=== PATIENT | female | born 1945 | race Caucasian/White ===

== ENCOUNTER 2025-07-28 14:20 | Emergency (ER) | payer MEDICARE, SELFPAY ==
--- OUTSIDE RECORDS SUMMARY | 2024-02-20 08:20 | XMS_ITS ---
Author Organization [facility] Address [address] [place] [address] Care Team Providers Care Senior Process Engineer Name Role Phone Tesfaye Chapman Unavailable [phone] Robert Buckley DPM Unavailable Unavailable REASON FOR VISIT SP LEFT FOOT HWR DOS 09/15 Encounters Encounter Location Date Provider Diagnosis [facility] [address] [place] [address] 02/20/2024 Tesfaye Chapman Plan Of Treatment No Information Progress Notes * LITZY SOMERS RDOB: (79 yo F)Acc No.[id number]:02/20/2024 Progress Notes Patient: Hernandez LITZY CATES :?Tesfaye Chapman DPMDOB:1945???Age:78 Y ???Sex:FemaleDate:02/20/2024hone:[phone]:[address] [place], [place] [phone] Subjective: * Chief Complaints: * 1 . SP LEFT FOOT HWR DOS 09/15. * Medical History: Objective: * Vitals: Assessment: Plan: * Treatment: Forms: * Images: * Electronic signature of Tesfaye Chapman DPM on 07/28/2025 at 01:33 PM ESTSign off status: Pending * Provider: Omero Chapman DPM Date: 0 02/20/2024 Generated for Printing/Faxing/eTransmitting on:?07/28/2025 01:33 PM EST
--- OUTSIDE RECORDS SUMMARY | 2025-07-28 09:01 | XMS_ITS | Continuity of Care Document ---
Author Organization [facility] Address [address] [place] [address] Phone Care Team Providers Care Registered Veterinary Technician Name Role Phone Veronica Sanchez APRN Attending Provider [phone] Brian Cyr DO Primary Care Provider Care Teams Patient Care Team Team Status: Active Member Role/Relationship Status Dates Brian Cyr DO Primary Care Provider Active Patient Care Team Team Status: Inactive Member Role/Relationship Status Dates Veronica Sanchez APRN Attending Provider Active S tart: July 28, 2025 End: July 28harLauri Diaz Care ProviderActiveStart: July 28, 2025 End: July 28, 2025 Chief Complaint and Reason for Visit Chief Complaint Admit Date Right index finger July 28, 2025 1:32pm Allergies, Adverse Reactions, Alerts Allergen Type Severity Reaction Last Updated Verified Status No Known Allergies Allergy Unknown July 28, 2025 1:48pmYesActive Social History Smoking Status Status Start Date End Date Date of Observa tion Smokes tobacco daily (finding) July 28, 2025 1:50pm Observation Status Observation Response Date of Response Legal Sex Female (finding) Sex Assigned At [facility] 1945 Medications Medication Status Dose Units Route Directions Qty Days Refills S tart Date Stop Date End Date Reason(s) Instructions Adherence Tramadol 50 mg tablet Active 50 MG PO Twice sita y July 28, 2025 12:00amComplies with drug therapyCiprofloxacin-Dexamethasone 0.3-0.1 % drops,suspensionActiveDROPSOTICNov2024 12:00amComplies with drug therapy Vital Signs Vital Reading Result Reference Range Collection Date/Time Body Temperature 97.1 [degF] 97.6-99.0 July 282024 1:47pm Heart Rate 77 /min 60-100 July 28, 2025 1:47pm Respiratory rate 18 /min 12-24 July 282024 1:47pm Oxygen saturation by Pulse oximetry 98 % 95-100 July 28, 2025 1:47pm Advance Directives Advance Directive Response Recorded Date/ Time Advance Directives No July 1:30pm Insurance Providers Guarantor Lizeth Pelayo r Address [address] [place] [address] 2 [address] [facility] [address]Iffisih Info.Home Phone: Coverage Status Update:2025 Payer Group Member ID Coverage Type Subscriber Relationship to Subscriber Effective Date Expiration Date Medicare [id number] Garcia Id: [id number] [address] [place] [phone] Home Phone: [facility] [id number] Garcia Id: [id number] [address] [place] [address] [place] [address] Home Phone: [facility] [address] [place] [address] Work Phone: [phone] R Bollenbacher Id: [id number] [address] [place] [phone] Home Phone: Sel Encounters Encounter Location(s) Arrival/Admit Date Discharge/Departure Date Discharge/Departure Disposition Provider(s) Departed Physician/ Provider Office Visit -[facility] July 28, 2025 1:32pm July 28, 2025 2:00pm Discharged to home care or self care (routine discharge) Mary Lou Sanders APRN
[2025-07-28 14:27] VITALS: BP 170/92; PULSE 81; TEMP 37.2; O2SAT 98; BMI 24.5
--- NOTE | 2025-07-28 14:42 | XR_ITS ---
The [address] [address] Patient Name: LITZY SOMERS MRN: [id number] date: 1945 Sex: F Assigned Patient Location: ER Current Patient Location: ER Accession/Order Number: [id number] Exam Date: 07/28/2025 15:20 Report Date: 07/28/2025 15:44 At the request of: CHECO REID MD Procedure: XR hand RT min 3V RIGHT HAND - 4 views REASON FOR EXAM: Index finger swelling. Dog bite yesterday. COMPARISON: None FINDINGS: Diffuse soft tissue swelling is seen involving the second digit. No radiopaque foreign body or soft tissue gas. No acute bony process is seen. 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 XR/XR hand RT min 3V IMPRESSION: DIFFUSE SOFT TISSUE SWELLING INVOLVING THE SECOND DIGIT WITHOUT ACUTE BONY PROCESS. Impression dictated by: Colin Campos Jr., D.O. 07/28/2025 3:44 PM Dictation [facility] Electronically authenticated by: [id number] Y Date: 07/28/2025 15:44
[2025-07-28] MEDS: DIPHTH,PERTUSS(ACELL),TET VAC 0.5 ML SYRINGE IM (15:26)
--- NOTE | 2025-07-28 15:51 | ED.ANIMALBI1 ---
HPI - Animal Bite General Chief Complaint: Animal Bite Stated Complaint: DOG BITE Time Seen by Provider: 07/28/25 14:34 Source: patient Mode of arrival: walk-in Limitations: no limitations History of Present Illness HPI narrative: Patient is 79 years old female presented to the ER with a right index finger bite by a dog that she adopted yesterday, the patient denies any other complaint last tetanus was more than 5 years ago She denies any fever chills Related Data Home Medications ?Medication ?Instructions ?Recorded ?Confirmed tramadol 50 mg tablet mg 07/28/25 Previous Rx's ?Medication ?Instructions ?Recorded amoxicillin 875 mg-potassium 1 tab PO Q12H #20 tabs 07/28/25 clavulanate 125 mg tablet ibuprofen 600 mg tablet 600 mg PO TID PRN pain #10 tabs 07/28/25 Allergies Allergy/AdvReac Type Severity Reaction Status Date / Time No Known Drug Allergies Allergy Verified 07/28/25 14:32 Review of Systems ROS Status of ROS 10 or more systems reviewed and unremarkable except as noted in history and below Exam Narrative Exam Narrative: Nurses notes and vital signs reviewed and patient is not hypoxic. Hand: Patient has erythema of the index finger on the right side at the distal phalanx the patient have a 2 puncture wound 1 in the anterior aspect and the other in the posterior Both of them are healing there is no signs of infection there is only inflammation extending to the whole index finger and there is mild redness in the dorsum of the right hand as well extending just above the second metacarpal. There is a good radial pulse and capillary fill General: Well-appearing and in no apparent distress. Skin: Warm, dry, no pallor noted. No rash. Head: Normocephalic, atraumatic. Neck: Supple, non-tender. Eye: Pupils are equal, round and EOMI. No scleral icterus. Ears, Nose, Mouth, and Throat: TM are clear, no nasal mucosal hypertrophy. Oral mucosa is moist, no posterior oropharynx erythema, uvula is mid-line Cardiovascular: Regular Rate and Rhythm without murmur, gallop or rub. Respiratory: No accessory muscle use or respiratory distress. GI: Abdomen is soft, non-distended. Normal bowel sounds. No masses appreciated. No tenderness to palpation. No rebound, guarding, or rigidity noted. Neurological: A&O x4. No cranial nerve dysfunction observed. No truncal ataxia. Moves all extremities. Sensation intact. Psychiatric: Cooperative and interactive. Normal mood and affect. Constitutional Vital Signs, click to edit/add: Last Vital Signs Temp 98.9 F 07/28/25 14:27 Pulse 81 07/28/25 14:27 Resp 16 07/28/25 14:27 BP 170/92 H 07/28/25 14:27 Pulse Ox 98 07/28/25 14:27 O2 Del Method Room Air 07/28/25 14:27 Course Vital Signs Vital signs: Vital Signs Temperature 98.9 F 07/28/25 14:27 Pulse Rate 81 07/28/25 14:27 Respiratory Rate 16 07/28/25 14:27 Blood Pressure 170/92 H 07/28/25 14:27 Pulse Oximetry 98 07/28/25 14:27 Oxygen Delivery Method Room Air 07/28/25 14:27 Temperature 98.9 F 07/28/25 14:27 Pulse Rate 81 07/28/25 14:27 Respiratory Rate 16 07/28/25 14:27 Blood Pressure 170/92 H 07/28/25 14:27 Pulse Oximetry 98 07/28/25 14:27 Oxygen Delivery Method Room Air 07/28/25 14:27 MDM - Animal Bite MDM Narrative Medical decision making narrative: dog bite happened yesterday and she was provided a tetanus booster The right index finger showed no acute pathology except for the edema Right now the patient was started on p.o. antibiotic Augmentin to cover the prophylaxis but the patient was instructed that she does have some erythema there that could be inflammatory there is no concern right now for infection but with the fact that it is in the hand she need to make sure that the redness will not extend beyond the line that was marked The patient will have to make sure that within 48 hours the line will proceed and is not going to cross the line of marking In case any fever or any other new symptoms the patient to come back to the ER as well Explained to the patient that this is inflammation in the finger and specially with the small side of the finger we need to make sure that monitoring is close for any signs of infection The patient to follow-up with the primary care within 2 to 3 days and to come back to the ER in case of any worsening of the current symptoms or any new symptoms or concerns Discharge Plan Discharge Chief Complaint: Animal Bite Clinical Impression: Dog bite Patient Disposition: Home, Self-Care Time of Disposition Decision: 15:59 Condition: Good Prescriptions / Home Meds: New amoxicillin-pot clavulanate 875-125 mg tablet 1 tab PO Q12H Qty: 20 0RF ibuprofen 600 mg tablet 600 mg PO TID PRN (Reason: pain) Qty: 10 0RF No Action tramadol 50 mg tablet Print Language: Lithuanian Instructions: Animal Bite (ED) Additional Instructions: Come back to the ER incase you have any redness extending beyond the giselle Also come back to the ER in case of no improvement in the next 48 hours Referrals: [facility] [Primary Care Provider, Family Practice] - 1 week Discharge Date/Time: 07/28/25 16:07
[2025-07-28] MEDS: AMOXICILLIN/POT CLAV 875-125 MG TABLET 1 TAB PO (15:54)
--- OUTSIDE RECORDS SUMMARY | 2025-07-28 15:59 | XMS_ITS | Patient Health Record ---
Author Organization [facility] Address [address] [place] [address] Care Team Providers Care Bone Crusher Name Role Phone Tesfaye Chapman Unavailable [phone] Robert Buckley DPM Unavailable Unavailable Allergies No Known Allergies Reason For Referral No Information Medications Medication SIG (Take, Route, Frequency, Duration) Notes Start Date End Date Status traMADol ActiveCALCIUM + VIT DORALCALCIUM + VIT DActiveOne Tab Daily multiple vitamins QVXBISH-QNVKAM-SOSBGJkizhdWnzhqh 50 mg1 po bid prn ETEHKSZOEW30/29/2014ctive Social History Tobacco Use: Social History Observation Description Date Details (start date - stop date) Current Smoker NA - NA Smoking History Question Answer Notes Smoking Status Current Smoker Problems Problem Type SNOMED Code ICD Code Onset Dates Problem Status W/U Status Risk Notes Problem Internal prosthetic device causing pain (629096497) Painful orthopaedic hardware (T84.84XA) ActiveconfirmedProblemPathological fracture of left foot (disorder) (35481863843521814)Pathological fracture, left foot, initial encounter for fracture (M84.475A)ActiveconfirmedProblemPathological fracture, left foot, subsequent encounter for fracture with routine healing (M84.475D)Activeconfirmed ProblemAcquired hallux malleus of left great toe (disorder) (5285877274585228) Hallux limitus of left foot (M20.5X2)ActiveconfirmedProblemSwelling of first metatarsophalangeal joint of hallux (944575974)Bunion, left (M21.612)Active confirmedProblemAcquired hallux valgus (53256528)Acquired hallux interphalangeus of left foot (M20.12)ActiveconfirmedProblemEncounter for other orthopedic aftercare (Z47.89)Activeconfirmed Plan Of Treatment Pending Test Test Name Order Date NTH - Walking Boot OTS 10/06/2023 Insurance Providers Payer Name Payer Address Payer Phone Subscriber Number Group Number Insured Name Patient Relationship to Insured Coverage Start Date Coverage End [place] [address] [place] [address] [id number] Albert SOMERS - patient is the insured[address] [place], [place] [id number], JUDITHSelf - patient is the insuredN[facility] [address] [address] [place] [id number], JUDITHSelf - patient is the insured Medical (General) History Medical History History ICD Code Have you been in close conta ct with someone who has had MRSA within the last year? No Have you ever had or presently have MRSA? NoAre you a healthcare worker? No Surgical History Surgery Date(Month/Year) Left foot great toe IP jnt fusion, 1st M T ORIF 09/15/2023 [facility]
--- OUTSIDE RECORDS SUMMARY | 2025-07-28 15:59 | XMS_ITS | Clinical Summary ---
Author Organization [facility] Address [address] [place] [address] Care Team Providers Care Income Tax Consultant Name Role Phone Unavailable Primary Care Provider Unavailabl e Social History Tobacco UseTypesPacks/DayYears UsedDateSmoking Tobacco: Never Assessed CommentsUnknownSex and Gender InformationValueDate RecordedSex Assigned at Not on fileLegal ZziJakixq60/15/2023 7:32 PM EDTGender IdentityNot on fileSexual OrientationNot on file Last Filed Vital Signs Vital SignReadingTime TakenCommentsBlood Bbprccsx931/8608 12:00 PM EDT Pulse--Temperature--Respiratory Rate--Oxygen Saturation--Inhaled Oxygen Concentration--Ksdudo19.2 kg (157 lb)08/27/2021 12:00 PM PMVWeaoeo016.5 cm (5' 2 )08/27/2021 12:00 PM ESTBody Mass Index28.7208/27/2021 12:00 PM EST Plan of Treatment Not on file Insurance [address] [place] [address]
--- OUTSIDE RECORDS SUMMARY | 2025-07-28 15:59 | XMS_ITS | Clinical Summary ---
Author Organization [facility] Address [id number] [place] [address] Care Team Providers Care Art History Professor Name Role Phone HouseBrian DO Primary Care Provider [phone] Allergies No known active allergies Medications MedicationSigDispense QuantityRefillsLast FilledStart DateEnd DateStatus traMADol (ULTRAM) 50 mg tablet Take 50 mg by mouth.Active VIT C/VIT E/LUTEIN/MIN/OMEGA-3 (OCUVITE ORAL) Take 1 tablet by mouth.Active multivitamin capsule Take 1 capsule by mouth.Active LACTOBACILLUS COMBINATION NO.8 (ADULT PROBIOTIC ORAL) Take 1 tablet by mouth.Active calcium carbonate-vitamin D3 600 mg(1,500mg) -200 units per tablet Take 1 tablet by mouth.Active docusate sodium (COLACE) 100 mg capsule Take 100 mg by mouth.06/04/2016Active cyclobenzaprine (FLEXERIL) 10 mg tablet Take 1 tablet (10 mg total) by mouth 3 (three) times a day as needed for muscle spasms. 30 tablet 1Active Active Problems ProblemNoted DateDiagnosed DateDiverticular disease of large mjrgkumbi17/17/2017 Immunizations No known immunizations Family History Medical HistoryRelationNameCommentsNo Known ProblemsFatherRelationNameStatus CommentsFather Social History Tobacco UseTypesPacks/DayYears UsedDateSmoking Tobacco: Every DayCigarettes Smokeless Tobacco: NeverAlcohol UseStandard Drinks/WeekCommentsNo0 (1 standard drink = 0.6 oz pure alcohol)ChildcareAnswerDate RecordedChildcareUnknown 02/14/2019EmploymentAnswerDate PubwlhbfBawbffuwvkDipkgsa04/12/2019Purpose - Life AnswerDate RecordedPurpose and direction in cgrxGlxqjsv58/11/2021 CommentsNoSex and Gender InformationValueDate RecordedSex Assigned at BirthNot on fileLegal IynMxxesi04/06/2015 11:49 AM EDTGender IdentityNot on fileSexual OrientationNot on file Last Filed Vital Signs Vital SignReadingTime TakenCommentsBlood Lsorlmjt518/6910/ 9:25 AM EDT Qkxww1595 9:25 AM FIFTxhiozmctxo84.1 ??C (97 ??F)06/26/2021 8:26 AM EDT Respiratory Syjx7632 9:25 AM EDTOxygen Ituvswhsqs44%06/26/2021 9:25 AM EDTInhaled Oxygen Concentration--Dklpyz54.6 kg (160 lb)06/26/2021 6:36 AM EDT Qscsug746.5 cm (5' 2 )06/26/2021 6:36 AM EDTBody Mass Index29.261 6:36 AM EDT Plan of Treatment Health MaintenanceDue DateLast DoneCommentsDepression Bqnmdgwsz64/01/1957Tobacco Kcfizbghn66/01/1957DTaP,Tdap and Td Vaccines (1 - Tdap)1963Zoster (Shingles) Vaccine (1 of 2)1994Fall Risk Rsvtatwfo44/01/2010RSV ( or age 60+ yrs) (1 - 1-dose 75+ series)2019COVID-19 Vaccine (3 - 2024- season)/, 04/01/2021Influenza Uvhspbp7205/06/2025 Medical Devices Not on file Insurance * Guarantor: Lizeth Garcia TypeRelation to PatientDate of PhoneBilling AddressPersonal/UjpsvqUduf84/[birth year][address] [address] Advance Directives * Full Code (Latest Code Status on File) Date ActivatedDate LjepyyahmxuAwokusts02/17/2017 1:33 06/24/2017 4:30 PM Care Teams Team MemberRelationshipSpecialtyStart DateEnd Date Brian Cyr DO [facility]03/25/17
--- OUTSIDE RECORDS SUMMARY | 2025-07-28 15:59 | XMS_ITS | Clinical Summary ---
Author Organization [facility] Address [address] [place], [place] [address] Care Team Providers Care Relay Worker Name Role Phone House Sr., Brian SHARPE Anjali Primary Care Provider + Allergies No known active allergies Medications MedicationSigDispense QuantityRefillsLast FilledStart DateEnd DateStatus LACTOBACILLUS COMBINATION NO.8 (ADULT PROBIOTIC ORAL) Take 1 tablet by mouth once daily.Active CALCIUM CARBONATE/VITAMIN D3 (CALCIUM WITH VITAMIN D ORAL) Take 1 tablet by mouth once daily.Active VIT C/VIT E/LUTEIN/MIN/OMEGA-3 (OCUVITE ORAL) Take 1 tablet by mouth once daily.Active Multivitamin capsule Take 1 capsule by mouth once daily.Active TRAMADOL HCL (TRAMADOL ORAL) Take 50 mg by mouth twice daily.Active oxyCODONE immediate release (PERCOLONE) 5 mg immediate release tablet Take 1-2 tablets by mouth every 4 hours as needed. 120 tablet Active docusate sodium (COLACE) 100 mg capsule Take 1 capsule by mouth twice daily. 60 capsule Active Active Problems ProblemNoted DateDiagnosed DateS/p reverse total shoulder fmxeadqpyduf85/07/2016 Complete tear of left rotator cuff04/26/2016Primary osteoarthritis of left epidcxxb86/22/2016 Social History Tobacco UseTypesPacks/DayYears UsedDateSmoking Tobacco: Every MzuDzodwqgzaw366 Smokeless Tobacco: NeverAlcohol UseStandard Drinks/WeekCommentsNot Asked0 (1 standard drink = 0.6 oz pure alcohol)CommentsNoSex and Gender InformationValueDate RecordedSex Assigned at BirthNot on fileLegal SexFemale 03/10/2016 1:56 PM EDTGender IdentityNot on fileSexual OrientationNot on file Last Filed Vital Signs Vital SignReadingTime TakenCommentsBlood Vxbnfjis657/7209 12:00 PM EDT Qqkdd926806/04/2016 12:00 PM RXUMjhyadooilo39.6 ??C (97.8 ??F)06/04/2016 12:00 PM EDTRespiratory Rvqw518606/04/2016 12:00 PM EDTOxygen Lpgckwmsgf15%06/04/2016 12:00 PM EDTInhaled Oxygen Concentration--Cawajw13 kg (152 lb 1.9 oz)05/21/2016 12:08 PM ZERHzxqeo849 cm (5' 2.99 )05/21/2016 12:08 PM EDTBody Mass Index26.95 05/21/2016 12:08 PM EDT Plan of Treatment Health MaintenanceDue DateLast DoneCommentsAnxiety Biuyeepwu54/01/1963Depression Snexjuxln93/01/1963DTaP,Tdap,Td Vaccine (1 - Tdap)1963Pneumococcal Vaccine: 50+ (1 of 1 - PCV)1994Shingrix Vaccine (1 of 2)1994Bone Density Iolmfcgoe26/01/2010Diabetes Yitelpbvk53/29/, 05/21/2016RSV Vaccine (1 - 1-dose 75+ series)2019Advance Directive Lnelvymufv10/01/2025 Covid-19 Vaccine (1 - 2024- season)2025Influenza Vaccine (#1)2025 Medical Devices ImplantedTypeAreaManufacturerDevice IdentifierShelf Expiration DateModel / Serial / LotBaseplate Rsp 6.5mm Anaya 30mm Glenoid - [id number] Implanted:Qty[facility] Bone - Shoulder DJO [id number] / / [id number] Stem, Reverse Implanted:Qty: 1 on 06/03/2016 at [facility]plantLeft: Bone - Shoulder DJO [id number] / / [id number] Rsp 32mm Standard Socket Semiconstrain Humerus - [id number] Implanted:Qty: 1 on 06/03/2016 at [facility] - ShoulderLeft: Bone - ShoulderDJO INC06//[id number] / / [id number] Rsp 32mm -4mm Offset Glenoid Retain Screw - [id number] Implanted:Qty: 1 on 06/03/2016 at [facility] - ShoulderLeft: Bone - ShoulderDJO INC08/[id number] / / [id number] Rsp 5mm 26mm Bone Lock Glenoid Baseplate Shoulder - [id number] Implanted:Qty: 1 [facility]/03/2016 [facility] Bone - ShoulderDJO INC08/[id number] / / [id number] Rsp 5mm 18mm Bone Lock Glenoid Baseplate Shoulder - [id number] Implanted:Qty: 1 on 06/03/2016 [facility]: Bone - ShoulderDJO INC06/[id number] / / [id number] Rsp 5mm 30mm Bone Lock Glenoid Baseplate Shoulder - [id number] Implanted:Qty: 1 on 06/03/2016 [facility]: Bone - ShoulderDJO INC//[id number] / / [id number] Rsp 5mm 18mm Bone Lock Glenoid Baseplate Shoulder - [id number] Implanted:Qty: 1 on 06/03/2016 [facility]: Bone - ShoulderDJO INC/[id number] / / [id number] Procedures Procedure NamePriorityDate/TimeAssociated DiagnosisCommentsBASIC METABOLIC PANEL Zhohlth3606/03/2016 10:23 PM EDT from Last 3 Months or Most Recently Relevant to Health Maintenance Results * (ABNORMAL) BASIC METABOLIC PNL (06/03/2016 10:23 PM EDT)ComponentValueRef RangeTest MethodAnalysis TimePerformed AtPathologist QugpzhypiAkceisb3720 - 99 mg/dL06/04/2016 12:00 AM [facility] CESHZBQYAWOVU955 - 21 mg/dL 06/04/2016 12:00 AM [facility] LABORATORYCreatinine0.50(L)0.58 - 0.96 mg/dL06/04/2016 12:00 AM [facility] HLWMYBASPFCxytme533997 - 144 mmol/L06/04/2016 12:00 AM [facility] LABORATORYPotassium 4.23.7 - 5.1 mmol/L06/04/2016 12:00 AM [facility]ORY Vdtthotm72041 - 105 mmol/L06/04/2016 12:00 AM [facility] MTVXITZALPRS65514 - 30 mmol/L06/04/2016 12:00 AM [facility] LABORATORYAnion Jnf058 - 18 mmol/L06/04/2016 12:00 AM [facility] LABORATORYCalcium8.1(L)8.5 - 10.5 mg/dL06/04/2016 12:00 AM [facility] LABORATORYeGFR->6009 12:00 AM [facility] LABORATORYeGFR-All Other Races>60.06/04/2016 12:00 AM [facility] LABORATORYComment: eGFR (Estimated GFR) Units of measure: mL/min/1.73 meters squared eGFR is derived from the reexpressed MDRD Study equation using the following parameters: serum creatinine, age, gender and race. The creatinine assay has been calibrated to be traceable to IDMS. An eGFR <60 mL/min/1.73m2 for >3 months is consistent with chronic kidney disease. Refer to KDOQI guidelines for clinical interpretation. In patients with unstable renal function, e.g. those with acute kidney injury, the eGFR may not accurately reflect actual GFR. Specimen (Source)Anatomical Location / LateralityCollection Method / Volume Collection TimeReceived TimeBlood specimen (specimen)BLOOD SPECIMEN / Unknown 06/03/2016 10:23 PM EDT06/03/2016 10:24 PM EDT Narrative Authorizing ProviderResult TypeResult StatusJoseporsche Lopez MD, PhDLABORATORY Final ResultPerforming OrganizationAddressCity/State/ZIP CodePhone Number [facility] [address] [place] [address] from Last 3 Months or Most Recently Relevant to Health Maintenance Insurance Care Teams Team MemberRelationshipSpecialtyStart DateEnd Brian Olson Sr., DO PCP - GeneralFamily Medicine03/10/16
--- OUTSIDE RECORDS SUMMARY | 2025-07-28 15:59 | XMS_ITS | Clinical Summary ---
Author Organization [facility] Address [address], [address] [place] [address] Care Team Providers Care Security Risk Analyst Name Role Phone Ger Jung DO, Charles P Primary Care Provider + Allergies No known active allergies Medications MedicationSigDispense QuantityRefillsLast FilledStart DateEnd DateStatus traMADol (ULTRAM) 50 MG tablet Take 1 tablet by mouth every 6 hours as needed for Pain.Active calcium carbonate (OSCAL) 500 MG TABS tablet Take 1 tablet by mouth dailyActive Multiple Vitamin (MULTIVITAMIN ADULT PO) Take by mouthActive Misc Natural Products (YUMVS BEET ROOT-TART MENDES PO) Take by mouthActive Social History Tobacco UseTypesPacks/DayYears UsedDateSmoking Tobacco: Every DayCigarettes Smokeless Tobacco: Never Tobacco Cessation:Ready to Q uit: Not Asked; Counseling Given: Not Answered Alcohol UseStandard Drinks/WeekCommentsNot Currently0 (1 standard drink = 0.6 oz pure alcohol)Interpersonal Safety Domain Source: IP Abuse ScreeningAnswerDate RecordedRead-Only, Retired: Physical HcvsdVzceoi88/11/2024ead-Only, Retired: Verbal ArtndUstexi94/11/2024ead-Only, Retired: Emotional dfmddRludqg63/11/2024 Read-Only, Retired: Financial AcaobQzthfe77/11/2024ead-Only, Retired: Sexual veyahEqamos20/11/2024CommentsNoSex and Gender InformationValueDate RecordedSex Assigned at BirthNot on fileLegal VsfWccrtf03/10/2013 3:30 PM EST Gender IdentityNot on fileSexual OrientationNot on file Last Filed Vital Signs Vital SignReadingTime TakenCommentsBlood Wtbtofnd314/78009/15/2023 11:45 AM EST Cdvxo3125/11/2024 11:45 AM JWNLuiloxpqzyo23.2 ??C (97.1 ??F)09/15/2023 10:55 AM ESTRespiratory Rpaz117309/15/2023 11:45 AM ESTOxygen Cjyhiokrrv23%09/15/2023 11:45 AM ESTInhaled Oxygen Concentration--Vtmkuc33.3 kg (155 lb)09/15/2023 7:11 AM EST Kyhqan907.5 cm (5' 2 )09/15/2023 7:11 AM ESTBody Mass Index28.35009/15/2023 7:11 AM EST Plan of Treatment Health MaintenanceDue DateLast DoneCommentsDepression Agjwjw0409/05/1957 DTaP/Tdap/Td vaccine (1 - Tdap)1963Pneumococcal 50+ years Vaccine (1 of 2 - PCV)1963Shingles vaccine (1 of 2)1994DEXA (modify frequency per FRAX score)1999Respiratory Syncytial Virus (RSV) or age 60 yrs+ (1 - 1-dose 75+ series)2019Annual Wellness Visit (Medicare)08/24/2023Flu vaccine (#1)5COVID-19 Vaccine (3 - season)/, 04/01/2021Hepatitis A vaccineAged OutNo longer eligible based on patient's age to complete this topicHepatitis B vaccineAged OutNo longer eligible based on patient's age to complete this topicHib vaccineAged OutNo longer eligible based on patient's age to complete this topicMeningococcal (ACWY) vaccineAged OutNo longer eligible based on patient's age to complete this topicMeningococcal B vaccineAged OutNo longer eligible based on patient's age to complete this topic Polio vaccineAged OutNo longer eligible based on patient's age to complete this topic Medical Devices ImplantedTypeAreaManufacturerDevice IdentifierShelf Expiration DateModel / Serial / LotDartfire Edge Cannulated Screw Implanted:Qty: 1 on 09/15/2023 by [facility]24/[id number] / / [id number] Bne [id number] Nit Shp Mem Compressive Forc Disp - [id number] Implanted:Qty: 1 on 09/15/2023 by Tesfaye Chapman, DPM at [facility] [employer]-WD04/13/[id number] / / [id number]ty IdentifierShelf Expiration DateModel / Serial / LotEasyfuse Staple 15x12 Nitinol 2-Leg - [id number] [facility] [employer]-WD01/29/[id number] / / [id number] Orth 1.6mm Jeanette 229mm Smooth Dbl Shrp Tip Trcr S Stl - [id number] Explanted:Qty: 1 on 09/15/2023 by Tesfaye Chapman[facility]IE [facility] [employer]IMMER [employer] TRAUMA-[id number] / / Insurance TERE ALICE CARRANZA [phone] Advance Directives * Full Code (Latest Code Status on File) Date ActivatedDate InactivatedComments09/15/2023 11:04 AM09/15/2023 2:48 PM Care Teams Team MemberRelationshipSpecialtyStart DateEnd Date Brian Cyr Sr., DO [address] [place] [address] PCP - GeneralFamily Jcdktxae13/20/23
== END 2025-07-28 16:07 | disposition home or self-care (01) ==
PROVIDERS: Emergency Provider Emergency Medicine; PCP Family Medicine
DX: S61.230A Puncture wound without foreign body of right index finger without damage to nail, initial encounter (principal); W54.0XXA Bitten by dog, initial encounter
CPT/HCPCS: 73130; 90471; 90715; 99284